=== PATIENT | female | born 1970 | race Caucasian/White ===

== ENCOUNTER → 2019-07-21 05:46 | Day surgery (SDC) | payer BC ==
[~2019-07-21 05:46] MED LIST: Buffered Lidocaine 1% SYRIN* 1 ML/SYRINGE INTRADERM ONE; Dexamethasone IV* 4 MG/ML 1 ML (4 MG) ONE; EPHEDrine (Pressors)* 50 MG/ML VIAL ONE; Famotidine IV* 10 MG/ML 2 ML (20 mg) IV ONE; Famotidine IV* 10 MG/ML 2 ML (20 mg) ONE; Glycopyrrolate IV* 0.2 MG/ML 1 ML VIAL ONE; KETAMINE HCL* 50 MG/ML 10 ML VIAL ONE; Ketorolac INJ* 30 MG/ML 1 ML VIAL ONE; Lactated Ringers 1000 ML Bag* 1,000 ML IV SCH; Lidocaine 1% w EPI 1:100,000* MDV 20 ML VIAL ONE; Lidocaine 2% PF * 5 ML VIAL ONE; Midazolam* 1 MG/ML 5 ML VIAL (5 MG) ONE; Naloxone* 0.4 MG/ML 1 ML VIAL IV PRN; Neostigmine Methylsulfate* 1 MG/ML 10 ML VIAL (1 mg/ml) ONE; Ondansetron INJ* 2 MG/ML VIAL IV PRN; Ondansetron INJ* 2 MG/ML VIAL ONE; Propofol* 10 MG/ML 20 ML BTL ONE; fentaNYL* 50 MCG/ML 2 ML VIAL (100 MCG VIAL) IV PRN; fentaNYL* 50 MCG/ML 2 ML VIAL (100 MCG VIAL) ONE; oxyCODONE/Acetamin 5/325 MG* TAB PO PRN
[2019-07-21 10:08] VITALS: BP 99/59
--- NOTE | 2019-07-21 19:26 | OP ---
DATE OF OPERATION: 07/21/19 - [facility] DATE OF : 68 SURGEON: Prabhjot Pike DO OIL PIT ATTENDANT: Denise Martin MD ANESTHESIA: General endotracheal. PRE-OP DIAGNOSIS: Abnormal uterine bleeding. POST-OP DIAGNOSIS: Abnormal uterine bleeding, endometrial polyp. OPERATIVE PROCEDURE: Hysteroscopy, dilation and curettage, Myosure and Mirena IUD placement. IV FLUIDS: 1450 mL. DISTENTION MEDIA: Normal saline with a fluid deficit of 150 mL. ESTIMATED BLOOD LOSS FOR THE CASE: 5 mL. URINE OUTPUT: 0. SPECIMEN: Endometrial polyp and endometrial curettage. COMPLICATIONS: None. FINDINGS EXAM: Under anesthesia revealed a normal-sized anteverted uterus with normal contour and normal bilateral adnexa. Hysteroscopy exhibited 1 polyp extending from the fundus of the uterus. Uterine cavity and bilateral tubal ostia appeared to be otherwise normal. INDICATIONS AND CONSENT: A 49-year-old G0 presented to preop for scheduled hysteroscopy, D and C, MyoSure and placement of Mirena IUD, has a history of abnormal uterine bleeding. Ultrasound was concerning for endometrial polyp versus submucosal fibroid, prior endometrial biopsy revealed scant fragments of atrophic endometrial mucosa, no evidence of malignancy or hyperplasia. The risk , benefits, and alternatives of the procedure were discussed with the patient. She understood the risks of the procedure include but are not limited to uterine perforation, fluid overload, and rare risk of . She wished to proceed and signed the consent. DESCRIPTION OF PROCEDURE: The patient was taken to the OR where general anesthesia was administered without difficulty. She was placed in dorsal lithotomy position with Yellowfin stirrups and exam under anesthesia revealed a normal anteverted uterus. The patient was then prepared and draped in the normal sterile fashion. A weighted speculum was inserted in the posterior aspect of the vagina. A single tooth tenaculum was used to grasp the anterior lip of the cervix. The uterus was carefully sounded to 8 cm. The cervical os was sequentially dilated to accommodate the MyoSure hysteroscope and operative device using Travis dilators. The MyoSure hysteroscope was introduced under direct visualization and the uterus was distended with normal saline. The findings above were noted. The hysteroscope operative device was used to remove the endometrial polyp, which extended from the fundus of the uterus. The endometrial lining was curettaged utilizing the MyoSure device as well. Hysteroscope and MyoSure device were then removed from the cervix and a sharp curettage was performed with a medium sized sharp curette. The uterus was curetted in a clockwise fashion until a gritty feeling was noted in all aspects. The endometrial polyp and endometrial curettage scrapings were sent to Pathology. A Mirena IUD was then placed without complication and the strings trimmed to 3 cm. The tenaculum was then removed from the cervix and good hemostasis was noted at the puncture sites. All instruments were removed from the vagina. The patient tolerated the procedure well. The instrument and sponge counts were correct x2. The patient was awakened from general anesthesia and taken to the recovery room in a stable condition. The patient will go home after recovering from anesthesia and meeting all criteria for discharge. She was given instructions regarding followup visit in 2 weeks at [facility]. I was present for the entire procedure. Sundar Pike DO OBGYN [id number]/CPS #: [id number] MTDD
== END | disposition home or self-care (01) ==
LOC: OR 05:46
PROVIDERS: ATTEND Obstetrics & Gynecology
DX: N93.9 Abnormal uterine and vaginal bleeding, unspecified (principal); N84.0 Polyp of corpus uteri; E11.9 Type 2 diabetes mellitus without complications; Z79.84 Long term (current) use of oral hypoglycemic drugs; E78.00 Pure hypercholesterolemia, unspecified; F41.8 Other specified anxiety disorders; J45.990 Exercise induced bronchospasm; L50.8 Other urticaria
CPT/HCPCS: 81025; 88305; J1100; J1885; J2250; J2405; J2704; J2710; J3010; J7300

== ENCOUNTER 2019-10-24 08:17 | Emergency (ER) | payer BC ==
--- OUTSIDE RECORDS SUMMARY | 2019-10-24 08:23 | XMS REPORT | Continuity of Care Document ---
:1970 External Reference #:[id number] Author Name Prabhjot Pike JR, DO (transmitted by agent of provider Jeannie Vela ) Address [address], [place] [address] Care Team Providers Name Role Phone Izabella العلي - Family Medicine Care Team Information Clinical Resource Manager Unavailable Problems Active Problems Provider Date Disorder of menstruation Prabhjot Pike JR, DO Onset: 05/14/2019 Social History Type Date Description Comments Sex Unknown Cigarette Use Does Not Smoke Cigarettes ETOH Use Occasionally consumes alcohol Recreational Drug Use Does Not Use Drugs Tobacco Use Start: Unknown Patient has never smoked Smoking Status Reviewed: 09/02/19 Patient has never smoked Exercise Type/Frequency Exercises regularly 5-6 days/week Allergies, Adverse Reactions, Alerts Active Allergies Reaction Severity Comments Date Actos 04/01/2019 Atorvastatin abdominal pain, nausea 04/01/2019 Ragweed hives, itching 04/01/2019 Medications Active Medications SIG Qnty Indications Ordering Provider Date Citalopram Hydrobromide 1 by mouth every Unknown day 40mg Tablets Ibuprofen take one tab by Unknown 600mg Tablets mouth q8 hours as needed pain Montelukast Sodium 1 by mouth every Unknown 10mg day Tablets Proventil HFA 1 puff every 4 Unknown 108(90Base) hour and every 2 mcg/Act Aerosol hour if needed Metformin HCL ER take 1 tab by Unknown 750mg mouth 2x daily Tablets ER 24HR Fish Oil 1 by mouth every Unknown 1000mg Capsules day Vitamin B12 once a day Unknown 1000mcg Tablets ER Victoza inject 1.8 mg Unknown 18mg/3ML Solution daily Pen-Inject Invokana Unknown 300mg Tablets Victoza inject 1.8 mg Unknown 18mg/3ML Solution daily Pen-Inject Immunizations Description No Information Available Vital Signs Date Vital Result Comment 09/02/2019 3:22pm BP Systolic 128 mmHg BP Diastolic 78 mmHg Height 66.25 inches 5'6.25" Weight 183.00 lb BMI (Body Mass Index) 29.3 kg/m2 0 Parity 0 07/16/2019 2:39pm BP Systolic 132 mmHg BP Diastolic 68 mmHg Height 66.25 inches 5'6.25" Weight 182.00 lb BMI (Body Mass Index) 29.2 kg/m2 Last Menstrual Period 7875819 0 Parity 0 Results Test Acquired Date Facility Test Result H/L Range Note Laboratory test 07/21/2019 [facility] Surgical SEE RESULT 1 [place] [address] Pathology BELOW [phone] Laboratory test 07/21/2019 [facility] Point of Care 198 mg/dL High 70-100 [address] [place] [address] Glucose [phone] Laboratory test 07/21/2019 [facility] Point of Care 190 mg/dL High 70-100 [address] [place] [address] Glucose [phone] Laboratory test 04/01/2019 [facility] Surgical SEE RESULT [address] [place] [address] Pathology BELOW [phone] 1 SEE RESULT BELOW Name: SOUMYA AVILA : [address]: Prabhjot Pike DO Acct: [id number] Unit: [id number] AGE: 49 Location: OR Re07/21/19 SEX: F Status: REG [facility] SPEC: [id number] LUCIANO: 07/21/19- SUBM DR: Prabhjot Pike DO REQ: [id number] RECD: 07/21/19 STATUS: SOUT _ ORDERED: LEVEL 4 FINAL DIAGNOSIS Uterus, endometrium, biopsy: -- Benign endometrial polyp. -- Fragments of weakly proliferative endometrium with no evidence of hyperplasia or malignancy. PRE-OPERATIVE DIAGNOSIS Abnormal uterine and vaginal bleeding GROSS DESCRIPTION The specimen is received in formalin labeled, Endometrial Curettings and Endometrial Polyp, and consists of a 2.1 x 1.7 x 0.3 cm aggregate of chester-pink irregular soft tissue fragments admixed with blood-tinged mucus and red-brown blood clot. Received separately within a stockinette is a 1.9 x 1.6 x 0.3 cm aggregate of red-brown blood clot and chester -pink irregular soft tissue fragments admixed with mucus. The specimen is entirely submitted in cassettes A and B to include separately received tissue in cassette B. Signed by and Reported on: Fallon Ta MD 07/22/19 1432 END OF REPORT DEPARTMENT OF PATHOLOGY, [address] [place] [address] Boby Mckeon M.D. Director MARANDA # [id number] 2 Extension Associate: [id number] 3 Extension Associate: [id number] 4 SEE RESULT BELOW Name: SOUMYA AVILA : [address]: Prabhjot Pike DO Acct: [id number] Unit: [id number] AGE: 49 Location: [facility] Re04/01/19 SEX: F Status: PRE REF SPEC: [id number] LUCIANO: 04/01/19- [facility] DR: Prabhjot Pike DO REQ: [id number] RECD: 04/02/19 STATUS: SOUT _ ORDERED: LEVEL 4 COMMENTS: [id number] FINAL DIAGNOSIS Uterus, endometrium, biopsy: -- Minute fragments of atrophic endometrial mucosa. -- No evidence of hyperplasia or malignancy. PRE-OPERATIVE DIAGNOSIS Abnormal bleeding GROSS DESCRIPTION The specimen is received in formalin labeled, Endometrial BX, and consists of a 3.0 x 2.5 x 0.6 cm aggregate of translucent mucus admixed with chester-white irregular soft tissue fragments and red-brown blood clot, which is filtered and submitted entirely in one cassette. Signed by and Reported on: Fallon Ta MD 04/03/19 1401 END OF REPORT DEPARTMENT OF PATHOLOGY, [address] [place] [address] Boby Mckeon M.D. Director [facility] # [id number] Procedures Date Code Description Status 07/21/2019 61237 Hysteroscopy,D&C Completed 07/21/2019 71280 Insert Intrauterine Device Completed 04/01/2019 50302 Biopsy Endometrial W/O Cervical Dilation Completed 02/23/2019 [id number] Mammogram Completed Medical Devices Description No Information Available Encounters Type Date Location Provider Dx Diagnosis Office Visit 07/16/2019 [facility] Prabhjot Pike JR, N93.9 Abnormal uterine and 2:30p DO vaginal bleeding, unspecified Office Visit 07/08/2019 [facility] Prabhjot Pike JR, N93.9 Abnormal uterine and 11:30a DO vaginal bleeding, unspecified Assessments Date Code Description Provider 07/21/2019 N93.9 Abnormal uterine and vaginal bleeding, Prabhjot Pike JR, DO unspecified 07/21/2019 Z30.430 Encounter for insertion of intrauterine Prabhjot Pike JR DO contraceptive device 07/16/2019 N93.9 Abnormal uterine and vaginal bleeding, Prabhjot Pike JR, DO unspecified 07/08/2019 N93.9 Abnormal uterine and vaginal bleeding, Prabhjot Pike JR, DO unspecified 04/01/2019 N93.9 Abnormal uterine and vaginal bleeding, Prabhjot Pike JR DO unspecified Plan of Treatment No Information Available Functional Status Description No Information Available Mental Status Description No Information Available Referrals Description No Information Available
[2019-10-24 08:38] VITALS: BP 139/84
[2019-10-24] MEDS ORDERED: Ibuprofen TAB* 600 MG PO ONE (09:00)
--- NOTE | 2019-10-24 09:00 | UC ---
Shoulder Pain HPI - HPI Summary HPI Summary: 49-year-old woman comes in with chief complaint of left shoulder pain. Yesterday while walking her dog her dog pulled her over and drug her along the ground. She landed on her left shoulder and right knee. Her right knee feels normal now she is not concerned about it. Took ibuprofen last night which did help with the pain. Denies any head injury. This morning when she woke up the pain in the left shoulder is worse and also has pain in the left side of the neck. Now also has pain in the left side of the head. She does report she had a hard time remembering the work concussion and she suffered 4 concussions in the past. Not on any blood thinners. At this time she says she is not worried about a concussion or head injury. In the neck the Pain primarily is in the left side of the neck. The shoulder hurts more with range of motion of motion and she does report limited range of motion of the left shoulder. She also injured her right shoulder but she feels that's minimal. - History of Current Complaint Chief Complaint: UCHeadInjury Stated Complaint: SHOULDER INJURY Time Seen by Provider: 10/24/19 08:52 Hx Last Menstrual Period: IUD Pain Intensity: 6 - Allergies/Home Medications Allergies/Adverse Reactions: Allergies Allergy/AdvReac Type Severity Reaction Status Date / Time atorvastatin AdvReac Abdominal Verified 10/24/19 08:38 Pain pioglitazone [From Actos] AdvReac Diarrhea Verified 10/24/19 08:38 dust mites Allergy Unknown Hives Uncoded 10/24/19 08:38 ragweed Allergy Unknown Hives Uncoded 10/24/19 08:38 Home Medications: Home Medications Fexofenadine HCl 180 mg PO QPM 09/08/12 [History Confirmed 10/24/19] Liraglutide (NF) [Victoza] 18 mg SC QAM 09/08/12 [History Confirmed 10/24/19] metFORMIN* [Glucophage*] 750 mg PO BID 04/29/15 [History Confirmed 10/24/19] Montelukast Sodium TAB* [Singulair TAB*] 5 mg PO QAM 07/10/16 [History Confirmed 10/24/19] Citalopram TAB* 1 tab PO QAM 07/13/19 [History Confirmed 10/24/19] Invokana (NF) 1 tab PO QAM 07/13/19 [History Confirmed 10/24/19] traZODone TAB* 50 mg PO QPM 07/13/19 [History Confirmed 10/24/19] Cyanocobalamin (Vitamin B-12) [Vitamin B-12] 1 dose PO DAILY 10/24/19 [History Confirmed 10/24/19] Ibuprofen 600 mg PO ONCE PRN 10/24/19 [History Confirmed 10/24/19] Levonorgestrel (Iud) [Mirena IUD] 1 unit INTRAUTERI ONCE 10/24/19 [History Confirmed 10/24/19] [place]-3 Fatty Acids/Fish Oil [Fish Oil 1,000 mg Softgel] 1 dose PO DAILY [History Confirmed 10/24/19] PMH/Surg Hx/FS Hx/Imm Hx Previously Healthy: Yes Endocrine History: Diabetes - Surgical History Surgical History: Yes Surgery Procedure, Year, and Place: [facility]- lap cholecystectomy, 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 D&C 2018 - Family History Known Family History: Positive: Hypertension Family History: FHx of CVA - Brother in 50's and 60's - Social History Alcohol Use: None Substance Use Type: None Smoking Status (MU): Never Smoked Tobacco - Immunization History Most Recent Influenza Vaccination: 7363-2203 season Review of Systems All Other Systems Reviewed And Are Negative: Yes Constitutional: Positive: Negative Skin: Positive: Negative Eyes: Positive: Negative ENT: Positive: Negative Respiratory: Positive: Negative Cardiovascular: Positive: Negative Gastrointestinal: Positive: Negative Motor: Positive: Decreased ROM Neurovascular: Positive: Negative Musculoskeletal: Positive: Other: - SEE HPI Neurological/Mental Status: Positive: Headache Psychological: Positive: Negative Is Patient Immunocompromised?: Yes - on Vitoza Physical Exam Triage Information Reviewed: Yes Appearance: Well-Appearing, Well-Nourished, Pain Distress - Mild with range of motion examination of the left shoulder and neck. Vital Signs: Initial Vital Signs Temp 98.5 F 10/24/19 08:31 Pulse 72 10/24/19 08:31 Resp 18 10/24/19 08:31 BP 139/84 10/24/19 08:31 Pulse Ox 100 10/24/19 08:31 Vital Signs Reviewed: Yes Eye Exam: Normal Eyes: Positive: Conjunctiva Clear, Other: - PERRLA EOMI no photophobia. ENT: Positive: TMs normal - No hemotympanum Neck: Positive: Supple, Other: - Mild tenderness to palpation the left paraspinous muscles into the left trapezius over the superior scapula Respiratory: Positive: Lungs clear, Normal breath sounds, No respiratory distress Musculoskeletal: Positive: Other: - Tender to palpation at left shoulder joint. Normal radial pulses bilaterally normal sensation normal capillary refill in both arms. Full strength and range of motion with finger wrist elbow movements. Shoulder extension on the left is 90 on the right it's 170. Shoulder abduction on the left is 80, 110 on the right. Internal rotation is L1 on the right L5 on the left. Neurological: Positive: Alert Psychological: Positive: Age Appropriate Behavior Skin Exam: Normal Shoulder Course/Dx - Course Course Of Treatment: Batch Mixing Truck Driver: Juancarlos Solares ([id number]) Area Operations Director: KRISTIE (RAEGANANCE) Report Date: 10/24/2019 10:03:00 Report Status: Final Start of Report Content Patient Name: LIVE DUNCAN Medical Record#: [id number] Ordering Physician: Chadd Fraser MD Acct.#: [id number] : 1970 Age : 49 Sex: F Location: [facility] Exam Date: 10/24/19900 ADM Status: REG ER Order Information: SHOULDER LEFT 2+ VWS Accession Number: [id number] CPT: 86692 INDICATION: Pain after a fall TECHNIQUE: 2 views of the left scapula and 4 views of the left shoulder were obtained. FINDINGS: The bones are in normal alignment. No fracture is seen. Joint spaces appear maintained. IMPRESSION: NO EVIDENCE FOR FRACTURE, IF THE PATIENT'S SYMPTOMS PERSIST RECOMMEND FOLLOW-UP IMAGING. <Electronically signed by Juancarlos Solares MD in OV> 10/24/19958 Dictated By: Juancarlos Solares MD Dictated Date/Time: 10/24/19956 Transcribed Date/Time: 10/24/19956 Copy to: CC:Izabella Das MD; Chadd Fraser MD Imaging - [facility] Imaging [facility] [address] [facility] [place] [address] ph ([phone]) ph ([phone]) ph [phone]) End of Report Content Batch Mixing Truck Driver: Juancarlos Solares, ([id number]) Area Operations Director: KRISTIE, (NUANCE) Report Date: 10/24/2019 10:03:00 Report Status: Final Start of Report Content Patient Name: LIVE DUNCAN Medical Record#: [id number] Ordering Physician: Chadd Fraser MD Acct.#: [id number] : 1970 Age : 49 Sex: F Location: [facility] Exam Date: 10/24/19900 ADM Status: REG ER Order Information: SCAPULA LEFT Accession Number: [id number] CPT : 55296 INDICATION: Pain after a fall TECHNIQUE: 2 views of the left scapula and 4 views of the left shoulder were obtained. FINDINGS: The bones are in normal alignment. No fracture is seen. Joint spaces appear maintained. IMPRESSION: NO EVIDENCE FOR FRACTURE, IF THE PATIENT'S SYMPTOMS PERSIST RECOMMEND FOLLOW-UP IMAGING. <Electronically signed by Juancarlos Solares MD in OV> 10/24/19958 Dictated By: Juancarlos Solares MD Dictated Date/Time: 10/24/19956 Transcribed Date/ Time: 10/24/19956 Copy to: CC:Izabella Das MD; Chadd Fraser MD Imaging - [facility] [address] [place] [address] ph ([phone]) ph [phone]) ([phone]) End of Report Content ========= Batch Mixing Truck Driver: Juancarlos Solares, ([id number]) Area Operations Director: KRISTIE, (NUANCE) Report Date: 10/24/2019 10:01:00 Report Status: Final Start of Report Content Patient Name: LIVE DUNCAN Medical Record#: [id number] Ordering Physician: Chadd Fraser MD Acct.#: [id number] : 1970 Age : 49 Sex: F Location: [facility] Exam Date: 10/24/19900 ADM Status: REG ER Order Information: SP CERVICAL 4+VWS Accession Number: [id number] CPT: 36912 INDICATION: Neck pain after a fall COMPARISON: None. TECHNIQUE: 5 views of the cervical spine were obtained. FINDINGS: C1-C7 are visualized. The vertebra are in normal alignment. No prevertebral soft tissue swelling or fracture is seen. Disc spaces appear maintained. IMPRESSION: No radiographic evidence of fracture or subluxation. If the patient's symptoms persist, follow-up imaging is recommended. <Electronically signed by Juancarlos Solares MD in OV> [id number] Dictated By: Juancarlos Solares MD Dictated Date/Time: 10/24/19950 Transcribed Date/Time: 10/24/19950 Copy to: CC:Izabella Das MD; Chadd Fraser MD Imaging - [facility] Imaging - [facility] [address] [place] [address] ph [phone] ph ) ph ([phone]) End of Report Content I discussed the x-rays with the patient. The plan is to use lidocaine patch and cold on the area. She was given ibuprofen 600 mg by mouth here in clinic which she said did help with the pain. She will continue the ibuprofen as needed. Also doing a prescription for Flexeril to use as needed. Patient will follow-up with sports medicine if not completely improved. If she gets worse she should get reevaluated sooner. - Differential Dx/Diagnosis Provider Diagnosis: Neck pain, Left shoulder pain Discharge ED - Sign-Out/Discharge Documenting (check all that apply): Patient Departure All imaging exams completed and their final reports reviewed: Yes - Discharge Plan Condition: Stable Disposition: HOME Patient Education Materials: Shoulder Pain (ED), Acute Neck Pain (ED) Referrals: Izabella Das MD [Primary Care Provider] - Thomas Funk [Medical Doctor] - Additional Instructions: FOLLOW UP WITH SPORTS MEDICINE IF NOT COMPLETELY IMPROVED. GET REEVALUATED SOONER IF NOT IMPROVED OR WORSE; PAIN, WEAKNESS, NUMBNESS OR ANY QUESTIONS OR CONCERNS. - Billing Disposition and Condition Condition: STABLE Disposition: Home
== END 2019-10-24 10:32 | disposition home or self-care (01) ==
LOC: UCEAST 08:17
DX: M25.512 Pain in left shoulder (principal); M54.2 Cervicalgia; R51 Headache; E11.9 Type 2 diabetes mellitus without complications; Z79.84 Long term (current) use of oral hypoglycemic drugs; Z88.8 Allergy status to other drugs, medicaments and biological substances; Z91.09 Other allergy status, other than to drugs and biological substances
CPT/HCPCS: 72050; 99212; A9270-GY; G0463